=== PATIENT | male | born 1965 | race Caucasian/White ===

== ENCOUNTER → 2016-12-30 | Outpatient (CLI) | payer MEDICAID ==
[~2016-12-30] MED LIST: ACTOS30 MG PO; BACTRIM DS 8001 TA1 PO; DOXYCYCLINE HY100 M7 PO; IBUPROFEN800 MG PO; MEN'S MULTIVITA1 TA1 PO; METFORMIN HCL850 MG PO; NAPROXEN SODIU500 MG PO; NEURONTIN800 MG PO; OXYCODONE HCL15 MG PO; OXYCODONE HYDRO15 MG PO
[2016-12-30 16:28] LABS: AMPHETAMINES/METAMPHETAMINES NEGATIVE ng/mL (<1000)
== END ==
LOC: LAB 15:35
PROVIDERS: Nurse Practitioner Family
DX: I10 Essential (primary) hypertension (principal)